=== PATIENT | male | born 1985 | race Caucasian/White ===

== ENCOUNTER → 2016-12-16 | Outpatient (REF) ==
--- NOTE | 2016-12-17 02:53 | REP ---
Clinical: Pain and disability. Technique: AP, lateral, open mouth views of the cervical spine. Findings: Alignment and lordosis are relatively well maintained. There is no evidence for acute fracture / compression injury or subluxation. Moderate degenerative disc osteophyte complex at the C5-6 level noted with disc space narrowing. Endplate sclerosis and disc space narrowing noted at the C4-5 and C3-4 levels. Impression: Degenerative changes as noted above. Signed by Kevin Carlos MD 12/17/2016 02:44 A
--- NOTE | 2016-12-17 04:34 | REP ---
Clinical: Pain and disability. Technique: AP, lateral, coned-down views of the lumbosacral spine. Findings: Alignment and lordosis maintained. Vertebral bodies are intact. No acute fracture / compression injury or subluxation. Mild age-related degenerative changes are appreciated without overt disc osteophyte complex noted. Impression: Age-related degenerative changes. If the patient remains symptomatic consider MRI for further investigation. Signed by Kevin Carlos MD 12/17/2016 04:25 A
== END ==
LOC: M SMT 13:49
PROVIDERS: ATTEND Internal Medicine
DX: Z02.1 Encounter for pre-employment examination (principal)